=== PATIENT | female | born 1970 | race African-American/Black ===

== ENCOUNTER 2022-05-28 07:05 | Inpatient (IN) | payer MEDICAID ==
[~2022-05-28] VITALS: Ht 167.6 cm; Wt 130.7 kg
[2022-05-28] MEDS ORDERED: METOCLOPRAMIDE HCL 10MG/2ML VIAL IV ONE (08:30)
[2022-05-28] MEDS ORDERED: SODIUM CHLORIDE 0.9% 1,000 ML IV ONE (08:30)
[2022-05-28] MEDS ORDERED: ACETAMINOPHEN 325MG TABLET PO ONE (08:30)
[2022-05-28 08:45] LABS: EOSINOPHILS % 2.1 % (0.0-5.0); HEMATOCRIT. 44.9 % (36.0-48.0); HEMOGLOBIN. 15.3 g/dL (12.0-16.0); LYMPHOCYTES % 47.3 % (20.0-50.0); MEAN CORPUSCULAR HEMOGLOBIN 31.1 pg (28.0-32.0); MEAN CORPUSCULAR VOLUME 91.1 fL (81.0-99.0); MEAN PLATELET VOLUME 7.5 fl (7.4-10.4); NEUTROPHILS % 43.6 % (40.0-76.0); PLATELET 302 x1000/uL (130-400); RED BLOOD CELL COUNT 4.93 mill/uL (4.2-5.4); RED CELL DISTRIBUTION WIDTH 13.5 % (11.6-14.6)
[2022-05-28 08:46] LABS: CHLORIDE 110 mEq/L (98-107)
[2022-05-28 09:10] LABS: HCG SCREEN NEGATIVE
[2022-05-28] MEDS ORDERED: IOHEXOL-350 100 ML BOTTLE ONE (11:00)
[2022-05-28] MEDS ORDERED: MORPHINE SULFATE 4 MG/ML CPJ (NOT FOR IM USE) IV ONE (11:30)
[2022-05-28] MEDS ORDERED: DOCUSATE SODIUM 100MG CAPSULE PO PRN (13:30)
[2022-05-28] MEDS ORDERED: IPRATROPIUM/ALBUTEROL 0.5-3(2.5)MG/3ML NEB NEB PRN (13:30)
[2022-05-28] MEDS ORDERED: ACETAMINOPHEN 325MG TABLET PO PRN (13:30)
[2022-05-28] MEDS ORDERED: MAGNESIUM/ALUMINUM HYDROXIDE/SIMETHICONE 30ML UDC PO PRN (13:30)
[2022-05-28] MEDS ORDERED: NALOXONE HCL 0.4MG/ML VIAL IV PRN (14:00)
[2022-05-28] MEDS ORDERED: KETOROLAC 30MG/ML VIAL IV NR (14:15)
[2022-05-28] MEDS ORDERED: ONDANSETRON HCL 4MG/2ML INJ IV ONE (14:45)
[2022-05-28] MEDS ORDERED: ONDANSETRON INJ 8 MG in DEXTROSE 5% WATER 50 ML IV NR (15:30)
[2022-05-28] MEDS ORDERED: KETOROLAC 15MG/ML VIAL IV NR (15:30)
[2022-05-28] MEDS: HYDROCODONE/ACETAMINOPHEN 7.5/325MG TABLET PO PRN ×2 (15:44→20:23)
[2022-05-28] MEDS ORDERED: HYDRALAZINE 20MG/ML VIAL IV NR (16:15)
[2022-05-28] MEDS ORDERED: ONDANSETRON HCL 4MG/2ML INJ IV PRN (16:30)
[2022-05-28] MEDS ORDERED: ALPRAZOLAM 0.5 MG TABLET PO PRN (18:45)
[2022-05-28] MEDS ORDERED: DEXAMETHASONE 10 MG/ML VIAL IV NR (18:45)
[2022-05-28] MEDS ORDERED: ALPRAZOLAM 0.25 MG TABLET PO PRN (19:15)
[2022-05-28] MEDS: GABAPENTIN 300MG CAPSULE PO SCH (19:23)
[2022-05-28] MEDS: KETOROLAC 30MG/ML VIAL IV PRN (20:23)
[2022-05-28] MEDS ORDERED: GABAPENTIN 300MG CAPSULE PO NR (21:00)
[2022-05-28] MEDS: ENOXAPARIN 30MG/0.3ML SYR SUBCUT SCH (21:51)
[2022-05-28] MEDS: CLONIDINE 0.1MG TABLET PO PRN (21:51)
[2022-05-28 23:00] VITALS: BP 143/88
[2022-05-28] MEDS ORDERED: GABAPENTIN 300MG CAPSULE PO SCH (23:56)
[2022-05-29] VITALS: BP 143/88
[2022-05-29] MEDS: HYDROCODONE/ACETAMINOPHEN 7.5/325MG TABLET PO PRN ×4 (00:15→12:51)
[2022-05-29 04:00] VITALS: BP 159/73
[2022-05-29] MEDS: ALPRAZOLAM 0.25 MG TABLET PO PRN ×2 (04:47→13:53)
[2022-05-29] MEDS: PANTOPRAZOLE 40MG DR TABLET PO SCH (05:55)
[2022-05-29] MEDS: ACETAMINOPHEN 325MG TABLET PO PRN (05:56)
[2022-05-29 06:54] LABS: BASOPHILS % 0.3 % (0.0-2.0); HEMATOCRIT. 44.1 % (36.0-48.0); HEMOGLOBIN. 15.4 g/dL (12.0-16.0); LYMPHOCYTES % 14.5 % (20.0-50.0); MEAN CORPUSCULAR HEMOGLOBIN 31.3 pg (28.0-32.0); MEAN CORPUSCULAR VOLUME 89.4 fL (81.0-99.0); MEAN PLATELET VOLUME 7.7 fl (7.4-10.4); MONOCYTES % 1.1 % (2.0-8.0); NEUTROPHILS % 84.1 % (40.0-76.0); PLATELET 320 x1000/uL (130-400); RED BLOOD CELL COUNT 4.94 mill/uL (4.2-5.4); RED CELL DISTRIBUTION WIDTH 13.5 % (11.6-14.6)
[2022-05-29 08:03] VITALS: BP 158/89
[2022-05-29] MEDS: GABAPENTIN 300MG CAPSULE PO SCH ×2 (08:58→18:39)
[2022-05-29] MEDS: ENOXAPARIN 30MG/0.3ML SYR SUBCUT SCH (09:00)
[2022-05-29 09:28] LABS: CHLORIDE 109 mEq/L (98-107)
[2022-05-29 09:46] LABS: HDL CHOLESTEROL 87 mg/dL (40-59); LDL CHOLESTEROL 112 mg/dL (5-100); T4 FREE 0.92 ng/dL (0.76-1.46)
[2022-05-29 12:30] VITALS: BP 177/88
[2022-05-29] MEDS: KETOROLAC 30MG/ML VIAL IV PRN ×2 (15:56→20:54)
[2022-05-29] MEDS: AMLODIPINE 10MG TABLET PO SCH (15:57)
[2022-05-29 16:00] VITALS: BP 156/84
[2022-05-29] MEDS ORDERED: ALPRAZOLAM 0.5 MG TABLET PO NR (16:45)
[2022-05-29] MEDS: HYDROCODONE/ACETAMINOPHEN 10/325MG TABLET PO PRN (18:41)
[2022-05-29 20:00] VITALS: BP 159/90
[2022-05-29] MEDS ORDERED: ALPRAZOLAM 0.5 MG TABLET PO PRN (20:42)
[2022-05-29] MEDS: ENOXAPARIN 40MG/0.4ML SYR SUBCUT SCH (20:49)
[2022-05-29] MEDS ORDERED: QUETIAPINE FUMARATE 50MG TABLET PO SCH (21:00)
[2022-05-29] MEDS ORDERED: GABAPENTIN 300MG CAPSULE PO SCH (21:00)
[2022-05-30] MEDS: HYDROCODONE/ACETAMINOPHEN 10/325MG TABLET PO PRN ×3 (02:27→17:21)
[2022-05-30 04:00] VITALS: BP 125/66
[2022-05-30] MEDS: ACETAMINOPHEN 325MG TABLET PO PRN (05:48)
[2022-05-30 06:38] LABS: CHLORIDE 111 mEq/L (98-107)
[2022-05-30] MEDS: PANTOPRAZOLE 40MG DR TABLET PO SCH (06:50)
[2022-05-30 06:54] LABS: BASOPHILS % 0.5 % (0.0-2.0); EOSINOPHILS % 0.9 % (0.0-5.0); HEMOGLOBIN. 14.3 g/dL (12.0-16.0); MEAN CORPUSCULAR HEMOGLOBIN 31.1 pg (28.0-32.0); MEAN CORPUSCULAR VOLUME 91.2 fL (81.0-99.0); MEAN PLATELET VOLUME 8.2 fl (7.4-10.4); MONOCYTES % 6.2 % (2.0-8.0); NEUTROPHILS % 45.4 % (40.0-76.0); PLATELET 286 x1000/uL (130-400); RED CELL DISTRIBUTION WIDTH 13.8 % (11.6-14.6)
[2022-05-30 08:00] VITALS: BP 164/115
[2022-05-30 08:09] LABS: CLARITY URINE CLEAR (CLEAR); COLOR URINE YELLOW (YELLOW); KETONES URINE NEGATIVE (NEGATIVE); LEUKOCYTE ESTERASE URINE NEGATIVE (NEGATIVE); NITRITE URINE NEGATIVE (NEGATIVE); OCCULT BLOOD URINE NEGATIVE (NEGATIVE); PROTEIN URINE NEGATIVE (NEGATIVE); SPECIFIC GRAVITY URINE 1.011 (1.005-1.030); UROBILINOGEN URINE 0.2 E.U./dL (0.2-1.0)
[2022-05-30] MEDS ORDERED: KCL 20MEQ/100ML PREMIX 100 ML IV SCH (09:00)
[2022-05-30 09:18] LABS: *AMPHETAMINES SCREEN URINE NEGATIVE (NEGATIVE); *BARBITURATES SCREEN URINE NEGATIVE (NEGATIVE); *BENZODIAZEPINES SCREEN URINE PRESUMTIVE POSITIVE (NEGATIVE); *COCAINE SCREEN URINE NEGATIVE (NEGATIVE); CANNABINOID URINE SCREEN PRESUMTIVE POSITIVE (NEGATIVE); METHADONE URINE SCREEN NEGATIVE (NEGATIVE); OPIATES URINE SCREEN PRESUMTIVE POSITIVE (NEGATIVE); PHENCYCLIDINE URINE SCREEN NEGATIVE (NEGATIVE)
[2022-05-30] MEDS: AMLODIPINE 10MG TABLET PO SCH (09:19)
[2022-05-30] MEDS: GABAPENTIN 300MG CAPSULE PO SCH ×2 (09:20→17:02)
[2022-05-30] MEDS: ENOXAPARIN 40MG/0.4ML SYR SUBCUT SCH (10:12)
[2022-05-30 12:00] VITALS: BP 158/90
[2022-05-30] MEDS ORDERED: SENNOSIDES/DOCUSATE SOD 8.6/50MG TABLET PO PRN (12:30)
[2022-05-30] MEDS ORDERED: POLYETHYLENE GLYCOL 3350 (17GM) 1 DOSE PACK PO ONE (12:30)
[2022-05-30] MEDS ORDERED: POTASSIUM CHLORIDE 20MEQ TABLET SR PO NR (12:30)
[2022-05-30] MEDS: KETOROLAC 30MG/ML VIAL IV PRN (13:36)
[2022-05-30] MEDS ORDERED: POLYETHYLENE GLYCOL 3350 (17GM) 1 DOSE PACK PO NR (14:15)
[2022-05-30] MEDS ORDERED: AMLO10TA80 PO (15:29)
[2022-05-30] MEDS ORDERED: TOPA25 PO (15:29)
[2022-05-30] MEDS ORDERED: TOPIRAMATE 25MG TABLET PO SCH (15:30)
[2022-05-30] MEDS: CLONIDINE 0.1MG TABLET PO PRN (17:23)
[2022-05-31] MEDS ORDERED: FAMOTIDINE 20MG TABLET PO SCH (06:50)
== END 2022-05-30 18:49 | disposition home or self-care (01) | DRG 54 ==
LOC: ER 07:23 → 3WST 12:57 → EDBEDREQ 13:02 → EDBEDREQSVC 13:02 → EDBEDREQTM 13:02 → SUPCPDRO 13:04 → ENRESERV 21:02
PROVIDERS: ADMIT Internal Medicine; ATTEND Internal Medicine
DX: G43.901 Migraine, unspecified, not intractable, with status migrainosus (principal); I67.1 Cerebral aneurysm, nonruptured; E66.01 Morbid (severe) obesity due to excess calories; E78.2 Mixed hyperlipidemia; G47.00 Insomnia, unspecified; I16.9 Hypertensive crisis, unspecified; F17.210 Nicotine dependence, cigarettes, uncomplicated; F12.90 Cannabis use, unspecified, uncomplicated; F32.A Depression, unspecified; F41.9 Anxiety disorder, unspecified; R73.03 Prediabetes; Z68.42 Body mass index [BMI] 45.0-49.9, adult; Z88.0 Allergy status to penicillin; Z79.899 Other long term (current) drug therapy; Z90.711 Acquired absence of uterus with remaining cervical stump
CPT/HCPCS: 36415; 70496; 70551; 71045; 80048; 80053; 80061; 80305; 81003; 83036; 83880; 84439; 84443; 84484; 84703; 85025; 93005; 99291; C1893; J1100; J1650; J1885; J2270; J2405; J2765; J3480; J7030; J7060; Q9967